=== PATIENT | female | born 2000 | race Caucasian/White ===

== ENCOUNTER → 2018-01-23 | Outpatient (REF) | payer BC | LOC: M SFHCCLAY 12:32 | DX: J02.9 Acute pharyngitis, unspecified (principal) ==

== ENCOUNTER → 2018-03-27 | Outpatient (CLI) | payer BC | LOC: M WUC 16:13 | DX: S67.22XA Crushing injury of left hand, initial encounter (principal); Y92.89 Other specified places as the place of occurrence of the external cause; Y93.89 Activity, other specified; X58.XXXA Exposure to other specified factors, initial encounter; Y99.8 Other external cause status | CPT/HCPCS: 73130 ==

== ENCOUNTER → 2018-07-12 | Outpatient (CLI) | payer BC ==
[2018-07-12 19:49] LABS: BASO % 0.4 % (0.0-1.0); EOS # 0.1 10^3/uL (0.0-0.50); EOS % 1.8 % (0.0-3.0); HEMATOCRIT 40.1 % (36.0-47.0); HEMOGLOBIN 13.6 g/dl (12.0-15.5); IMMATURE GRANULOCYTE % 0.3 % (0-3.0); LYMPH # 2.9 10^3/uL (1.5-6.5); LYMPH % 39.4 % (24.0-44.0); MEAN CORPUSCULAR HEMOGLOBIN 31.1 pg (27.0-33.0); MEAN CORPUSCULAR HGB CONC 33.9 g/dl (32.0-36.5); MEAN CORPUSCULAR VOLUME 91.6 fl (80.0-96.0); MONO # 0.5 10^3/uL (0.0-0.8); MONO % 6.3 % (0.0-5.0); NEUTROPHILS # 3.9 10^3/uL (1.8-7.7); NEUTROPHILS % 51.8 % (36.0-66.0); PLATELET COUNT, AUTOMATED 194 10^3/uL (150-450); RED BLOOD COUNT 4.38 10^6/uL (4.00-5.40); RED CELL DISTRIBUTION WIDTH 12.3 % (11.5-14.5); WHITE BLOOD COUNT 7.4 10^3/uL (4.0-10.0)
== END ==
LOC: M LAB 19:24
DX: L04.0 Acute lymphadenitis of face, head and neck (principal)
CPT/HCPCS: 85025

== ENCOUNTER → 2018-11-22 | Outpatient (REF) | payer BC ==
[2018-11-22 17:47] LABS: CHLAMYDIA DNA AMPLIFICATION NEGATIVE (NEGATIVE); GC DNA AMPLIFICATION NEGATIVE (NEGATIVE)
== END ==
LOC: M SFHCWAGY 15:53
PROVIDERS: ATTEND Nurse Practitioner Women's Health
DX: Z11.3 Encounter for screening for infections with a predominantly sexual mode of transmission (principal)

== ENCOUNTER 2019-02-03 00:48 | Emergency (ER) | payer BC ==
[~2019-02-03] VITALS: Ht 162.6 cm; Wt 63.6 kg
[2019-02-03] MEDS ORDERED: ZONE1CAP PO (01:09)
[2019-02-03] MEDS ORDERED: LAMI1TAB7 PO (01:09)
[2019-02-03] MEDS ORDERED: lamoTRIgine 100MG TAB PO ONE (01:30)
[2019-02-03] MEDS ORDERED: NS 1,000 ML IV ONE (02:30)
[2019-02-03 03:30] VITALS: BP 96/54
== END 2019-02-03 03:46 | disposition home or self-care (01) ==
LOC: M ED 00:48
DX: G40.909 Epilepsy, unspecified, not intractable, without status epilepticus (principal); Z79.899 Other long term (current) drug therapy

== ENCOUNTER → 2023-04-20 | Outpatient (REF) | payer BC ==
[~2023-04-20] MED LIST: LAMI1TAB7 PO; ZONE1CAP PO
== END ==
LOC: M LAB REF 16:12
PROVIDERS: ATTEND Nurse Practitioner Family
DX: R30.0 Dysuria (principal)